=== PATIENT | female | born 1945 | race Caucasian/White ===

== ENCOUNTER → 2017-03-24 | Outpatient (CLI) | payer MEDICARE ==
[~2017-03-24] MED LIST: GABA-531 PO; HYDR-4064 PO; HYDR12.530 PO; MELO-108 PO; MIRA50TA PO; POTA99TA21 PO; ROPI12TA2 PO
== END | disposition home or self-care (01) ==
LOC: RAH 12:22
PROVIDERS: ATTEND Neurological Surgery
DX: M47.26 Other spondylosis with radiculopathy, lumbar region (principal); M41.86 Other forms of scoliosis, lumbar region; Z98.890 Other specified postprocedural states
CPT/HCPCS: 72131

== ENCOUNTER → 2017-03-30 | Outpatient (CLI) | payer MEDICARE | END | disposition home or self-care (01) | LOC: RAH 16:43 | PROVIDERS: ATTEND Physical Medicine & Rehabilitation | DX: M47.895 Other spondylosis, thoracolumbar region (principal); M41.85 Other forms of scoliosis, thoracolumbar region; G47.00 Insomnia, unspecified | CPT/HCPCS: 72082 ==